=== PATIENT | female | born 1995 | race Caucasian/White ===

== ENCOUNTER 2019-08-12 15:13 | Emergency (ER) | payer MEDICAID, SELFPAY ==
[2019-08-12 15:14] VITALS: BP 124/80; PULSE 92; RESP 18; TEMP 37.1; O2SAT 100; BMI 23.8
[2019-08-12 16:07] VITALS: BP 124/80; PULSE 92; RESP 18; TEMP 37.1; O2SAT 100
[2019-08-12] MEDS: Cephalexin 500 MG Capsule PO (16:26)
[2019-08-12] MEDS: oxyCODONE 5 MG Tablet PO (16:26)
[2019-08-12] MEDS: Smz/Tmp Ds Tablet 1 TABLET PO (16:26)
[2019-08-12] MEDS: Ondansetron ODT 4 MG Tablet PO (16:28)
--- NOTE | 2019-08-12 16:34 | ED.DCSUM_ITS ---
History of Present Illness Chief Complaint: Abscess Informant: Patient Onset: Days - 5 Context: Gradual Onset Timing: Continuous Narrative: Patient is a 23-year-old female with history of IV heroin use presenting with ab scess to her left hand. She is right-hand dominant. She does regularly inject into her right upper extremity but states she is not injected into her hand for the past week or so. She denies associated fever or chills. She notes the redness is starting to streak up her arm. Patient denies any history of MRSA but that she does have a history of abscesses. She states her last tetanus was a year ago. She last used heroin yesterday. She states she is having some mild withdrawal symptoms now. She states she is interested in detox but not right now. She denies any other complaints. Her last menstrual period was 2 weeks ago and she is not concern for . Past Medical History - Allergies and Home Meds Allergies/Adverse Reactions: Allergies No Known Allergies Allergy (Verified 08/12/19 15:14) Primary Care Physician: Care Physician,No Primary [Primary Care Provider] - Past Medical History: - - IV drug abuse Surgical History: noncontributory Smoking Status: Current every day smoker Review of Systems All systems negative except as indicated Skin: Reports: Abscess - Left hand Physical Exam Vital Signs/Narrative: Vital Signs Temp Pulse Resp BP Pulse Ox 08/12/19 16:07 98.7 F 92 18 124/80 H 100 08/12/19 15:14 98.7 F 92 18 124/80 H 100 Inital Vital Signs reviewed: Yes General: Well nourished, Well developed, No Acute Distress Head: Normocephalic, Atraumatic Eyes: Perrl, EOMI ENT: Moist mucous membranes, No rhinorrhea Neck: Supple, Nontender Cardiovascular: Regular rate, Regular rhythm, No murmurs Respiratory: No distress, CTA bilaterally, Chest nontender Abdomen: Soft, Nontender Back: Normal Inspection Extremities: Tenderness - Left lateral hands, radial aspect, Edema Skin: Normal color, - - 3 cm x 2 cm abscess with no active drainage, overlying and surrounding erythema with central fluctuance over left lateral hand, significant tenderness to palpation. Patient does have streaking of erythema up the dorsal aspect of the left arm Neurological: Alert, Oriented x3, Cranial nerves II-XII grossly intact, Normal Strength, Normal Sensation Psychological: Normal affect, Agitated Diagnostic/Tx/Re-eval - Medical Decision Making Patient is evaluated for abscess to her left hand. She does have a history of IV drug use. I presume she has MRSA causing the infection. She has associated cellulitis with streaking up her arm concerning for lymphangitic spread. Areas of erythema are marked with a skin marker. Patient is neurovascularly intact. Her range of motion of the hand is normal however movement of the fourth and fifth fingers is slightly limited secondary to pain. Patient is counseled that she likely will require IV antibiotics and blood work however she states she does not want to be admitted. Patient is offered narcotic detox but declines. Incision and drainage is performed. See procedure note. Patient was given 1 dose of oral Percocet in the ER, Zofran and first dose of Bactrim and Keflex in the ER. She does not have any known allergies. Patient does appear hemodynamically stable. To be discharged home with Motrin for pain control. Her tetanus is up-to-date. Patient is counseled that she should have a very low threshold to return to the emergency room and there is a good chance this might worsen and ended up requiring IV antibiotics. She is heavily encouraged to stop using IV drug use and that she should absolutely not injected into the affected limb. Patient is counseled on signs and symptoms requiring return to the emergency room. Patient verbalizes agreement and understand this plan. Patient discharged home in stable and improved condition. Procedures Procedure(s): Incision and drainage. 1 cc of 1% lidocaine without epinephrine injected subcutaneously surrounding the abscess to adequate analgesia is achieved. A #10 blade is used to make 1 cm linear incision over maximum area of fluctuance. Wound cultures are obtained at this time. Significant amount of purulent drainage is expressed. Wound was then explored with hemostats to break up any loculations. Wound was left open, packing was not placed. Patient tolerated the procedure with significant pain but otherwise well. ED Disposition - Plan for ED Patient: Disposition: Home or Assisted Living Diagnosis: Abscess of left hand excluding fingers and thumb Instructions: ABSCESS, Incision and Drainage, MRSA SKIN INFECTION, Suspected or Confirmed Prescriptions: Smz/Tmp Ds [Bactrim Ds] 1 tab PO BID #20 tab Prescription Printed Ibuprofen 600 mg PO 4X/DAY PRN #20 tab PRN Reason: Pain Or Fever Prescription Printed Cephalexin [Keflex] 500 mg PO Q6 #40 cap Prescription Printed Referrals: Curtis Badillo MD [STAFF PHYSICIAN] - Additional Instructions: Please return to emergency room if you have worsening redness, swelling or you develop fever or chills. Please refrain from using any IV drugs and absolutely do not inject into your left arm/hand. If you would like to enter detox he may return to the emergency room and we can help arrange this for you. Make sure you take all of your antibiotics.
[2019-08-12 17:40] VITALS: BP 112/74; PULSE 87; RESP 18; O2SAT 99
== END 2019-08-12 17:41 | disposition home or self-care (01) ==
PROVIDERS: Emergency Provider Emergency Medicine
DX: L02.512 Cutaneous abscess of left hand (principal); L03.114 Cellulitis of left upper limb; F11.23 Opioid dependence with withdrawal; F17.200 Nicotine dependence, unspecified, uncomplicated
CPT/HCPCS: 10060; 87070; 87077; 87186; 87205; 90715; 99283

== ENCOUNTER 2019-11-28 16:46 | Emergency (ER) | payer MEDICAID, SELFPAY ==
[2019-11-28] VITALS (8 sets, daily range): BP systolic 93–102; BP diastolic 64–67; PULSE 83–94; RESP 16; TEMP 36.6–37.1; O2SAT 96–100; BMI 25.2
--- NOTE | 2019-11-28 16:58 | EKG12_ITS ---
Test Reason : DEPRESSION Blood Pressure : / mmHG Vent. Rate : 087 BPM Atrial Rate : 087 BPM P-R Int : 172 ms QRS Dur : 090 ms QT Int : 398 ms P-R-T Axes : 065 035 035 degrees QTc Int : 478 ms Normal sinus rhythm Possible Left atrial enlargement Borderline ECG Confirmed by SOURAV ANDRE ([id number]), website/blog editor GYPSY ANDERSON ([id number]) on 12/01/2019 3:15:24 PM Referred By: [facility] Confirmed By:SOURAV ANDRE
[2019-11-28 17:44] LABS: Absolute Lymphocyte Count 1.05 X10^3/uL (0.83-4.51); Basophil# 0.03 X10^3/uL; Basophil% 0.4 % (0-1); Eosinophil# 0.01 X10^3/uL; Eosinophils% 0.1 % (0-5); Hematocrit 35.6 % (37-47); Hemoglobin 11.8 g/dL (12.0-15.0); Lymphocyte # 1.05 X10^3/ul (4.0); Lymphocyte % 13.2 % (19-41); Mean Corp Hgb Conc 33.1 g/dL (32-36); Mean Corpuscular Hgb 28.9 pg (27.0-32.0); Mean Corpuscular Volume 87.3 fL (81-99); Mean Platelet Vol. 9.4 fl (6.2-12.0); Monocyte# 0.82 X10^3/uL; Monocyte% 10.3 % (0-10); NRBC Flagged by Analyzer 0 % (0-5); Neutrophil # 6.03 X10^3/uL (2.7-7.7); Neutrophil % 75.7 % (47-70); Platelet Count 239 K/mm3 (150-450); RBC Distribution Width CV 13.5 % (11.6-14.6); RBC Distribution Width SD 43.1 fl (35.1-43.9); Red Blood Count 4.08 M/mm3 (4.2-5.4)
[2019-11-28 18:11] LABS: ALB/GLOB Ratio 0.9 RATIO (0.9-2.4); AST(SGOT) 23 U/L (15-37); Alanine Aminotransfer ALT/SGPT 17 U/L (13-56); Albumin, Serum 3.7 g/dL (3.2-5.0); Alkaline Phosphatase 72 U/L (45-117); Anion Gap 8 (5-15); BUN 7 mg/dL (7-18); BUN/Creat Ratio 10.8 RATIO (10-20); Calcium,Total 8.6 mg/dL (8.5-10.1); Chloride 117 mmol/L (98-107); Creatinine, Serum 0.65 mg/dL (0.55-1.02); EST Glomerular Filtration Rate 117 mL/min (>60); Est Glom Filt Rate - Afr Amer 142 mL/min (>60); Estimated Creatinine Clearance 118.02 ml/min; Globulin 4.2 g/dL (2.2-4.2); Glucose 87 mg/dL (74-106); Potassium 3.4 mmol/L (3.5-5.1); Protein, Total 7.9 g/dL (6.4-8.2); Sodium Level 146 mmol/L (136-145); Total Bilirubin < 0.10 mg/dL (0.20-1.00)
[2019-11-28 18:33] LABS: Internal QC Validated? YES +Cl - CLEAR BKGD; Pregnancy, Serum, hCG Quali. NEGATIVE Negative
[2019-11-28 18:45] LABS: Amphetamine Urine VISTA NEGATIVE (<1000 ng/mL); Barbiturate Urine VISTA NEGATIVE (< 200 ng/mL); Benzodiazepine Urine VISTA NEGATIVE (< 200 ng/mL); Cocaine Urine VISTA NEGATIVE (< 300 ng/mL); Ecstacy Urine VISTA NEGATIVE (< 500 ng/mL); Methadone Urine VISTA NEGATIVE (< 300 ng/mL); PCP Urine VISTA NEGATIVE (< 25 ng/mL); THC Urine VISTA NEGATIVE (< 50 ng/mL); Vista UDS pH Range 5
--- NOTE | 2019-11-28 19:22 | ED.DCSUM_ITS ---
- ER Visit Summary Date of Service: 11/28/19 Chief Complaint: Suicidal ideation History of Present Illness: The patient is a 24 F brought in by law enforcement for suicidal ideation with bilateral arm lacerations and combative behavior. Patient did require restraint by EMS with 10 mg of Haldol. Patient reports a history of opioid use. She also drinks alcohol. Physical Examination: Afebrile and vital signs unremarkable. Head and neck atraumatic. Heart regular. Lungs clear. Abdomen soft. She has a linear forearm laceration to her left forearm measuring 9 cm, partial-thickness. 7 cm laceration to the right forearm, partial-thickness. She is neurovascular intact distally bilaterally. Patient exhibits mild agitation, but is redirectable. Test Results: Alcohol 180. Tox cream positive for opiates. hCG negative. Hemoglobin 11.8. Sodium 146, potassium 3.4, chloride 117. Hepatic panel normal. EKG showed sinus rhythm at a rate of 87. Emergency Department Course and Treatment: Her tetanus is up-to-date. Wounds were anesthetized locally with lidocaine and cleaned under good light and hemostasis. They are closed with simple interrupted sutures, 7 cm on the right arm, and 9 cm on the left arm. Dressings applied. Patient will be evaluated by crisis for placement for her suicidal ideation. Patient is medically cleared for transfer and admission to a psychiatric facility. Treatment Plan: Wound care follow-up in 10 to 14 days for suture removal. Return right away for any signs of infection. Disposition: Transfer pending Impression: Suicidal ideation Right arm laceration 7 cm Left arm laceration 9 cm Alcohol intoxication This note was generated with [employer] dictation software. It may contain incorrect words, spelling, and punctuation that were not noted in review of the chart prior to signing ED Disposition - Plan for ED Patient: Referrals: Care Physician,No Primary [Primary Care Provider] -
[2019-11-29] VITALS (9 sets, daily range): BP systolic 115–118; BP diastolic 74–90; PULSE 59–85; RESP 12–18; TEMP 36.3–36.4; O2SAT 97–100
--- NOTE | 2019-11-29 00:53 | ED.RN ---
DR MUNOZ IN TO SPEAK WITH THE PT. DETERMINED SUICIDE PRECAUTIONS AND SITTER NEEDED
[2019-11-29] MEDS: Naproxen 500 MG Tablet PO (01:21)
[2019-11-29 11:17] LABS: Color, Urine Yellow (Yellow); Glucose, Dipstick Normal (Normal); Ketone-Dipstick Negative (Negative); Leukocyte Esterase-Dipstick 25 /ul (Negative); Nitrite-Dipstick Negative (Negative); Occult Blood-Urine 250 /ul (Negative); Protein-Dipstick Negative (Negative); Specific Gravity, Urine 1.015 (1.002-1.030); Urine Bilirubin Dipstick Negative (Negative); Urine Clarity Clear (Clear); Urine Urobilinogen Normal (Normal)
[2019-11-29 11:49] LABS: Bacteria RARE /hpf (None Seen); Red Blood Cells-Urine 0-5 SEEN /hpf (0-5); Squamous Epithelial Cells - UA 5-10 SEEN /hpf (5-10); White Blood Cells 5-10 SEEN /hpf (0-5)
[2019-11-29 11:50] LABS: Mucous, Urine 1+ /hpf (<or=2+)
== END 2019-11-29 13:50 ==
PROVIDERS: Emergency Medicine; Emergency Provider Emergency Medicine
DX: R45.851 Suicidal ideations (principal); S51.812A Laceration without foreign body of left forearm, initial encounter; S51.811A Laceration without foreign body of right forearm, initial encounter; X78.9XXA Intentional self-harm by unspecified sharp object, initial encounter; Y93.9 Activity, unspecified; Y92.9 Unspecified place or not applicable; F10.129 Alcohol abuse with intoxication, unspecified; Z72.0 Tobacco use
CPT/HCPCS: 12005; 80053; 80307; 80320; 81001; 84703; 85025; 93005; 99284; G0480

== ENCOUNTER 2020-01-05 19:05 | Emergency (ER) | payer MEDICAID, SELFPAY ==
[2019-11-28 16:47] VITALS: BMI 25.2
[2020-01-05 19:06] VITALS: BP 122/73; PULSE 90; RESP 18; TEMP 36.7; O2SAT 98; BMI 23.3
--- NOTE | 2020-01-05 19:46 | ED.DCSUM_ITS ---
- ER Visit Summary Date of Service: 01/05/20 Chief Complaint: Abscess History of Present Illness: The patient is a 24 F who presents to the emergency department with an abscess to her left arm that is been getting worse over the past 5 days. Patient is unsure how this developed. Patient denies any fevers or chills. Patient admits to nausea but denies any vomiting. Patient denies any discharge or drainage. Patient states her pain is constant and aching. Patient states the pain is sharp with movement. Patient denies any paresthesias or weakness. Physical Examination: Vital signs are stable. Patient is afebrile. Patient is in no acute distress. Skin is warm and dry. There is an abscess over the left deltoid area. There is surrounding erythema and warmth. There is tenderness and induration. There is no active discharge or drainage. Range of motion of the left shoulder was limited in abduction secondary to pain. Radial pulses are equal bilateral. Sensation was intact to light touch in the radial, median, ulnar, and axillary areas. Strength is 5/5 in the radial, median, and ulnar areas. Emergency Department Course and Treatment: I discussed incision and drainage with the patient. She states that she just wants me to cut it open without using any anesthetic. Patient states she does not want any squeezing of the abscess. Patient states she just wants me to open it and let it drain. The area was cleaned with chlorhexidine. An 11 blade scalpel was used to make a cruciate incision. Large amount of purulent drainage was expressed. The wound was left open to drain. Patient did not want it irrigated or probed. Patient was started on doxycycline. Patient understood and was agreeable with the plan. All questions were answered. Disposition: Discharge home Impression: Left arm abscess This note was generated with [employer] dictation software. It may contain incorrect words, spelling, and punctuation that were not noted in review of the chart prior to signing ED Disposition - Plan for ED Patient: Disposition: Home or Assisted Living Diagnosis: Abscess of left arm Instructions: ABSCESS, Incision and Drainage Prescriptions: Doxycycline 100 mg PO BID #20 cap Prescription Printed Referrals: Care Physician,No Primary [Primary Care Provider] - Mariya Cash [NON-STAFF] - 5-7 Days
[2020-01-05] MEDS: Doxycycline 100 MG CAPSULE PO (19:50)
[2020-01-05 20:35] VITALS: PULSE 88; RESP 16; O2SAT 98
== END 2020-01-05 20:36 | disposition home or self-care (01) ==
PROVIDERS: Emergency Provider Emergency Medicine
DX: L02.414 Cutaneous abscess of left upper limb (principal); R05 Cough; Z72.0 Tobacco use
CPT/HCPCS: 10060; 99283

== ENCOUNTER 2020-01-25 12:17 | Emergency (ER) | payer MEDICAID, SELFPAY ==
[2020-01-25] VITALS (8 sets, daily range): BP systolic 110–133; BP diastolic 53–89; PULSE 62–134; RESP 14–38; TEMP 35.3; O2SAT 98–100; BMI 23.3
--- NOTE | 2020-01-25 12:41 | EKG12_ITS ---
Test Reason : Blood Pressure : / mmHG Vent. Rate : 105 BPM Atrial Rate : 105 BPM P-R Int : 156 ms QRS Dur : 082 ms QT Int : 352 ms P-R-T Axes : 063 046 043 degrees QTc Int : 465 ms Sinus tachycardia Otherwise normal ECG Confirmed by VINCE HEALY, VICKI ([id number]), features editor GYPSY ANDERSON ([id number]) on 01/27/2020 9:36:32 AM Referred By: [facility] Confirmed By:THERESA CLARKE MD
[2020-01-25] MEDS: LORazepam 2 MG/ML Syringe IM (13:04)
[2020-01-25] MEDS: DiphenhydrAMINE 50 MG/ML Syringe 25 MG IM (13:04)
[2020-01-25] MEDS: LORazepam 2 MG/ML Syringe 1 MG IV ×2 (13:19→14:15)
[2020-01-25] MEDS: DiphenhydrAMINE 50 MG/ML Syringe 25 MG IV (13:19)
[2020-01-25 13:27] LABS: Absolute Lymphocyte Count 0.92 X10^3/uL (0.83-4.51); Absolute Neutrophil Count 15.1 X10^3/uL (2.0-7.7); Basophil% 0.6 % (0-1); Eosinophil# 0.02 X10^3/uL; Eosinophils% 0.1 % (0-5); Hematocrit 36.2 % (37-47); Hemoglobin 11.9 g/dL (12.0-15.0); Lymphocyte # 0.92 X10^3/ul (4.0); Lymphocyte % 5.2 % (19-41); Mean Corp Hgb Conc 32.9 g/dL (32-36); Mean Corpuscular Hgb 27.7 pg (27.0-32.0); Mean Corpuscular Volume 84.2 fL (81-99); Mean Platelet Vol. 10.8 fl (6.2-12.0); Monocyte# 1.41 X10^3/uL; NRBC Flagged by Analyzer 0 % (0-5); Neutrophil % 85.6 % (47-70); Platelet Count 305 K/mm3 (150-450); White Blood Count 17.6 K/mm3 (4.4-11.0)
[2020-01-25 13:39] LABS: AST(SGOT) 44 U/L (15-37); Alanine Aminotransfer ALT/SGPT 22 U/L (13-56); Albumin, Serum 4.5 g/dL (3.2-5.0); Alkaline Phosphatase 90 U/L (45-117); Anion Gap 11 (5-15); BUN 52 mg/dL (7-18); BUN/Creat Ratio 44.1 RATIO (10-20); Calcium,Total 9.9 mg/dL (8.5-10.1); Chloride 111 mmol/L (98-107); Creatinine, Serum 1.18 mg/dL (0.55-1.02); EST Glomerular Filtration Rate 59 mL/min (>60); Est Glom Filt Rate - Afr Amer 71 mL/min (>60); Estimated Creatinine Clearance 67.63 ml/min; Globulin 4.6 g/dL (2.2-4.2); Glucose 104 mg/dL (74-106); Potassium 4.3 mmol/L (3.5-5.1); Protein, Total 9.1 g/dL (6.4-8.2); Sodium Level 138 mmol/L (136-145)
--- NOTE | 2020-01-25 13:57 | ED.DCSUM_ITS ---
- ER Visit Summary Date of Service: 01/25/20 Chief Complaint: Shortness of breath History of Present Illness: The patient is a 24 F who complains of shortness of breath. History is limited. She is extremely agitated. She also complains of a fever. She says she uses heroin and her last use was yesterday. She denies taking any other substances. She has a history of suicidal ideation and attempts. Physical Examination: Afebrile. Heart rate 134 respiratory rate 30. 99% on room air. Patient is severely agitated, diaphoretic. She is not responding to redirection and changing the environment. Head and neck are atraumatic and nontender. Heart tachycardic but regular. Lungs clear. Abdomen soft. Extremities are covered in multiple scabs and scars but otherwise unremarkable. She is slightly ataxic with ambulation but is able to stand and bear weight. She is moving all extremities. Cranial nerves grossly intact. Test Results: EKG pending. Chest x-ray pending. Tox screen pending. Alcohol pending. hCG pending. White count 17.6 and hemoglobin 11.9. Chloride 111, CO2 16, BUN 52, creatinine 1.18. AST 44. Emergency Department Course and Treatment: Patient presents with altered mental status. This seems consistent with stimulant use. She denies any methamphetamine or cocaine use. Says she normally uses heroin. She is agitated but knows her name, where she is, and the year. She does respond to some redirection, but appears very uncomfortable and is very agitated. She was initially treated with 2 mg of Ativan and 25 mg of Benadryl. She seemed to be doing better but during the blood draw, she became agitated again. She had additional Benadryl and Ativan. I am still awaiting results. Patient is having difficulty staying in bed and following commands. Patient became extremely agitated and would not respond to redirection or follow commands. We were concerned for her safety. She required leather restraints. I completed the appropriate paperwork and assessments. She also was treated with Geodon 20 mg IM. I am still awaiting test, tox screen, EKG, and chest x-ray. The oncoming physician will follow-up and assist with disposition. Treatment Plan: As above Disposition: Pending further evaluation and observation Impression: Agitation This note was generated with [employer] dictation software. It may contain incorrect words, spelling, and punctuation that were not noted in review of the chart prior to signing ED Disposition - Plan for ED Patient: Referrals: Care Physician,No Primary [Primary Care Provider] -
[2020-01-25 14:02] LABS: Alcohol, Blood (Medical)-Serum < 3.0 mg/dL
[2020-01-25] MEDS: Ziprasidone IM 20 MG/ML VIAL IM (14:27)
--- NOTE | 2020-01-25 14:32 | ED.RN ---
PT FOUND LAYING ON THE FLOOR. BEDSIDE COMMODE BUCKET ON THE FLOOR BROKEN. PT UP WALKING AROUND THE ROOM. PT INFORMED TO GET BACK INTO BED WHILE STAFF PUTTING ISOLATION EQUIPMENT ON. PT WOULD NOT SIT IN THE BED.SOFT RESTRAINT ORDER AND MEDICATION ORDER OBTAINED FROM THE MD. PT ASSISTED INTO THE BED WITH 2 STAFF MEMBERS ASSIST. PT INFORMED SHE IS BEING PLACED IN SOFT WRIST RESTRAINTS FOR HER SAFETY. PT PLACED IN SOFT WRIST RESTRAINTS. WHILE ATTEMPTING TO GIVE ATIVAN IN THE IV IN THE RIGHT FOOT PT ATTEMPTED TO KICK THIS NURSE AND JANE Gaitan RN IN THE HEAD. STAFF ASSIST BUTTON PUSHED. ADDITIONAL STAFF INTO THE ROOM. PER DR MADRID PT PLACED IN 4 POINT LOCKED RESTRAINTS. ADDITIONAL MEDICATION ORDER OBTAINED
[2020-01-25 15:46] LABS: Internal QC Validated? YES +Cl - CLEAR BKGD; Pregnancy, Urine Negative Negative
--- NOTE | 2020-01-25 15:50 | RAD_ITS ---
STUDY: X-RAY CHEST REASON FOR EXAM: Female, 24 years old. cough sob and altered loc. drug use as of yesterday TECHNIQUE: Single AP portable view of the chest. COMPARISON: April 24, 2016 FINDINGS: The lungs are clear and expanded. There is no demonstrated pleural abnormality. Normal size heart. Normal mediastinum and lucrecia. Normal visualized pulmonary arteries. Normal visualized aortic arch and descending thoracic aorta. Normal visualized thoracic spine. Normal visualized ribs, clavicles, and shoulders. There is no demonstrated abnormality of the visualized soft tissue structures of the upper abdomen. RAD/Chest 1 View (Portable) IMPRESSION: Normal x-ray examination of the chest. Electronically Signed: Konstantin Ocampo MD at 16:10 EDT , Service support ,
[2020-01-25 16:05] LABS: Amphetamine Urine VISTA POSITIVE (<1000 ng/mL); Barbiturate Urine VISTA NEGATIVE (< 200 ng/mL); Benzodiazepine Urine VISTA NEGATIVE (< 200 ng/mL); Cocaine Urine VISTA POSITIVE (< 300 ng/mL); Ecstacy Urine VISTA POSITIVE (< 500 ng/mL); Methadone Urine VISTA NEGATIVE (< 300 ng/mL); PCP Urine VISTA NEGATIVE (< 25 ng/mL); THC Urine VISTA NEGATIVE (< 50 ng/mL); Vista UDS pH Range 5
--- NOTE | 2020-01-25 21:42 | ED.DEP ---
ED Disposition - Plan for ED Patient: Disposition: Home or Assisted Living Diagnosis: Agitation, Polysubstance abuse, Mild dehydration Instructions: ED AMPHETAMINE ABUSE Referrals: [facility] [STAFF PHYSICIAN] - Additional Instructions: Your legs are probably cramping because you are a little dehydrated. Drink plenty of fluids and avoid heroin/other drugs and you will likely feel better.
== END 2020-01-25 22:10 | disposition home or self-care (01) ==
PROVIDERS: Emergency Provider Emergency Medicine
DX: R45.1 Restlessness and agitation (principal); F19.10 Other psychoactive substance abuse, uncomplicated; N28.9 Disorder of kidney and ureter, unspecified; E86.0 Dehydration; R27.0 Ataxia, unspecified; R41.82 Altered mental status, unspecified; Z78.1 Physical restraint status
CPT/HCPCS: 71045; 80053; 80307; 80320; 81025; 84484; 85025; 93005; 96372; 96374; 96375; 96376; 99285; P9612; G0480; J3486